=== PATIENT | female | born 1980 | race Hispanic/Latino ===

== ENCOUNTER 2017-05-18 12:16 | Emergency (ER) | payer SELFPAY ==
[~2017-05-18] VITALS: Ht 165.1 cm; Wt 86.0 kg
[~2017-05-18 12:16] MED LIST: LOPID600 MG PO; LOVASTATIN10 M1 PO; METFORMIN HCL1000 MG PO; METFORMIN500 MG PO; NAPROSYN500 MG PO; ZESTRIL/PRINIV2.5 MG PO
[2017-05-18 13:11] LABS: INFLUENZA A NONE DETECTED (NONE DETECT); INFLUENZA B NONE DETECTED (NONE DETECT)
[2017-05-18] MEDS ORDERED: MOTRIN800 MG PO (13:19)
[2017-05-18] MEDS ORDERED: TESSALON PER100 MG PO (13:19)
[2017-05-18] MEDS ORDERED: ZITHROMAX250 MG PO (13:19)
[2017-05-18] MEDS ORDERED: AFRIN 12 HOUR0.05 % (13:19)
[2017-05-18 13:25] VITALS: BP 129/74
== END 2017-05-18 13:25 | disposition home or self-care (01) | DRG 153 ==
LOC: ED 12:16
PROVIDERS: Emergency Medicine
DX: J06.9 Acute upper respiratory infection, unspecified (principal); B34.9 Viral infection, unspecified; J40 Bronchitis, not specified as acute or chronic; R50.9 Fever, unspecified; M79.1 Myalgia; R51 Headache

== ENCOUNTER 2020-12-25 08:34 | Emergency (ER) | payer OTHER, BC ==
[~2020-12-25] VITALS: Ht 165.1 cm; Wt 86.0 kg
[~2020-12-25 08:34] MED LIST changes: +AFRIN 12 HOUR0.05 %; +MOTRIN800 MG PO; +TESSALON PER100 MG PO; +ZITHROMAX250 MG PO
[2020-12-25] MEDS ORDERED: FLEXERIL5 M1 PO (10:53)
[2020-12-25] MEDS ORDERED: TORADOL PO (10:53)
[2020-12-25 12:59] VITALS: BP 147/95
== END 2020-12-25 13:02 | disposition home or self-care (01) | DRG 552 ==
LOC: ED 08:34
DX: S16.1XXA Strain of muscle, fascia and tendon at neck level, initial encounter (principal); R07.89 Other chest pain; M54.6 Pain in thoracic spine; E11.9 Type 2 diabetes mellitus without complications; V43.52XA Car driver injured in collision with other type car in traffic accident, initial encounter; Z79.84 Long term (current) use of oral hypoglycemic drugs

== ENCOUNTER 2024-07-09 19:48 | Emergency (ER) | payer SELFPAY ==
[~2024-07-09] VITALS: Ht 165.1 cm; Wt 80.7 kg
[2024-07-09] VITALS (10 sets, daily range): BP systolic 104–136; BP diastolic 48–102
[~2024-07-09 19:48] MED LIST changes: +FLEXERIL5 M1 PO; +TORADOL PO
[2024-07-09] MEDS ORDERED: KETOROLAC TROMETHAMINE 30 MG/ML SDV IV ONE (20:15)
[2024-07-09] MEDS ORDERED: SODIUM CHLORIDE 0.9% 1,000 ML IV ONE (20:15)
[2024-07-09] MEDS ORDERED: ACETAMINOPHEN 500 MG TAB PO ONE (20:15)
[2024-07-09 20:28] LABS: BASO% 0.4 % (0-3); EOS% 4.9 % (0-8); HEMATOCRIT 37.2 % (37.0-47.0); HEMOGLOBIN 12.9 g/dl (12.0-16.0); IMMATURE GRANULOCYTES 0.1 % (0.0-5.0); LYMPH% 32.2 % (15-41); MEAN CELL VOLUME 88.6 fL CALC (80.0-100.0); MEAN CORPUSCULAR HGB 30.7 pG CALC (26.0-32.0); MEAN CORPUSCULAR HGB CONC 34.7 g/dL CAL (32.0-36.0); MONO% 8.3 % (2-13); NEUT# 3.89 thou/uL (2.00-7.15); NEUT% 54.1 % (42-76); RED BLOOD COUNT 4.2 mill/uL (4.20-5.60); RED CELL DISTRI WIDTH 12.1 % (11.5-15.5)
[2024-07-09 20:44] LABS: ALBUMIN 4.5 g/dL (3.2-5.0); ALKALINE PHOSPHATASE 42 u/l (38-126); ANION GAP 11 (6-22 (CALC)); BILIRUBIN, TOTAL 0.6 mg/dL (0.02-1.3); BUN 11 mg/dL (7-17); BUN/CREATININE RATIO 20 (12-20 (CALC)); CARBON DIOXIDE 28 mmol/l (22-30); CHLORIDE 103 mmol/l (95-108); CREATININE 0.5 mg/dL (0.5-1.0); ESTIMATED GFR 119 ML/MIN (>=90 (CALC)); MAGNESIUM 1.9 mg/dL (1.6-2.3); POTASSIUM 4.2 mmol/l (3.5-5.1); SGOT/AST 28 u/l (14-36); SODIUM 138 mmol/l (137-146); TOTAL PROTEIN 7.6 g/dL (6.3-8.2)
[2024-07-09 21:15] LABS: TSH, 3RD GENERATION 3.48 uIU/mL (0.47 - 4.68)
[2024-07-09 21:41] LABS: URINE BILIRUBIN - DIPSTICK Negative (NEGATIVE); URINE BLOOD DIPSTICK Negative (NEGATIVE); URINE GLUCOSE - DIPSTICK Negative (NEGATIVE); URINE KETONE Negative (NEGATIVE); URINE LEUK ESTERASE Negative (NEGATIVE); URINE NITRITE - DIPSTICK Negative (Negative); URINE PH 5.5 (4.5-8.0); URINE PROTEIN - DIPSTICK Negative (NEG-TRACE); URINE SPECIFIC GRAVITY <=1.005; URINE UROBILINOGEN - DIPSTICK 0.2 E.U./dL (0.2)
[2024-07-09 21:42] LABS: URINE COLOR Yellow
[2024-07-09] MEDS ORDERED: VOLTAREN - GENE75 MG PO (21:47)
== END 2024-07-09 22:00 | disposition home or self-care (01) | DRG 156 ==
LOC: ED 19:48
PROVIDERS: Family Medicine
DX: H92.03 Otalgia, bilateral (principal); M26.623 Arthralgia of bilateral temporomandibular joint; R00.1 Bradycardia, unspecified; E11.9 Type 2 diabetes mellitus without complications; Z79.84 Long term (current) use of oral hypoglycemic drugs